=== PATIENT | female | born 1995 | race American Indian/Alaskan Native ===

== ENCOUNTER 2016-05-03 17:12 | Emergency (ER) | payer OTHER ==
[2016-05-03 21:49] VITALS: BP 128/76
[2016-05-03] MEDS ORDERED: MOTRIN PO ONE (22:19)
[2016-05-03] MEDS ORDERED: NORCO 5/325 PO ONE (22:19)
--- NOTE | 2016-05-03 23:36 | XRay Report ---
FINAL REPORT EXAM: XR ANKLE 3 LT HISTORY: Pain post injury TECHNIQUE: Left ankle three views 3 images PRIORS: None. FINDINGS: Bone mineralization appears within normal limits. No acute fracture or subluxation is identified. No gross abnormality is seen in the soft tissues. IMPRESSION: 1. No acute osseous abnormality is identified. If symptoms persist, consider repeat study in 10-14 days to assess for a currently radiographically occult fracture.
--- NOTE | 2016-05-03 23:59 | Emergency Department Report ---
HPI - General Chief Complaint: Extremity Injury, Lower Time Seen by Provider: 05/03/16 22:17 - HPI HPI: 20-year-old female presents today with left ankle pain since 4 PM today. Patient fell going down the steps at school. Positive for previous ankle sprains. Describes her pain as 8 out of 10 constant, throbbing pain. Denies numbness, weakness, paresthesias. Denies trying any medication for pain relief. Denies fever, chills, nausea, vomiting, chest pain, shortness of breath or abdominal pain. ED Past Medical Hx - Past Medical History Previous Medical History?: No - Surgical History Past Surgical History?: No - Social History Smoking Status: Never Smoker Substance Use Type: Alcohol, Marijuana - Medications Home Medications: Home Medications Medication Instructions Recorded Confirmed Last Taken Type Naproxen [Naprosyn] 500 mg PO BID #30 tablet 05/04/16 Unknown Rx ED Review of Systems ROS: Stated complaint: LFT ANKLE PAIN Other details as noted in HPI Constitutional: denies: chills, fever, malaise Eyes: denies: eye pain ENT: denies: ear pain, throat pain, congestion Respiratory: denies: cough, shortness of breath, wheezing Cardiovascular: denies: chest pain, palpitations Endocrine: no symptoms reported Gastrointestinal: denies: abdominal pain, nausea, vomiting Musculoskeletal: arthralgia Neurological: denies: headache, weakness, numbness, paresthesias Physical Exam - Physical Exam Vital Signs: Vital Signs 05/03/16 05/03/16 17:25 21:48 Temperature 98.2 F 98.0 F Pulse Rate 88 92 H Respiratory 18 16 Rate Blood Pressure 127/88 Blood Pressure 128/76 [Right] O2 Sat by Pulse 98 98 Oximetry Physical Exam: GENERAL: The patient is well-developed and well-nourished. Patient is in NAD. HEAD: Normocephalic. Atraumatic. CHEST/LUNGS: Clear to auscultation throughout. HEART/CARDIOVASCULAR: Regular rate and rhythm. ABDOMEN: Abdomen is soft, nontender. No guarding or rebound tenderness. LEFT ANKLE: Tenderness to palpation over lateral aspect of left ankle. Limited range of motion due to pain. Normal sensation. Peripheral pulses intact. Capillary refill less than 2 seconds. NEURO: Alert and oriented x 3. Antalgic gait. ED Course Vital Signs 05/03/16 05/03/16 17:25 21:48 Temperature 98.2 F 98.0 F Pulse Rate 88 92 H Respiratory 18 16 Rate Blood Pressure 127/88 Blood Pressure 128/76 [Right] O2 Sat by Pulse 98 98 Oximetry ED Medical Decision Making - Lab Data Vital Signs 05/03/16 05/03/16 17:25 21:48 Temperature 98.2 F 98.0 F Pulse Rate 88 92 H Respiratory 18 16 Rate Blood Pressure 127/88 Blood Pressure 128/76 [Right] O2 Sat by Pulse 98 98 Oximetry - Radiology Data Radiology results: report reviewed EXAM: XR ANKLE 3 LT HISTORY: Pain post injury TECHNIQUE: Left ankle three views 3 images PRIORS: None. FINDINGS: Bone mineralization appears within normal limits. No acute fracture or subluxation is identified. No gross abnormality is seen in the soft tissues. IMPRESSION: 1. No acute osseous abnormality is identified. If symptoms persist, consider repeat study in 10-14 days to assess for a currently radiographically occult fracture. - Medical Decision Making 20-year-old female presents today with left ankle pain post fall. Her x-ray results reveal no fracture or dislocation. She has been provided with a referral for orthopedic follow-up with. Patient is in no acute distress at this time. She will be discharged home and is encouraged to follow up with a primary care provider. She will be sent home on Naprosyn and is encouraged to return to the emergency room for any worsening symptoms. Critical care attestation.: If time is entered above; I have spent that time in minutes in the direct care of this critically ill patient, excluding procedure time. ED Disposition Clinical Impression: Ankle pain Qualifiers: Laterality: left Chronicity: acute Qualified Code(s): M25.572 - Pain in left ankle and joints of left foot Disposition: DISCHARGED TO HOME OR SELFCARE Is pt being admited?: No Does the pt Need Aspirin: No Condition: Stable Instructions: Ankle Sprain (ED), Ankle Exercises (GEN) Additional Instructions: Follow-up with primary care provider and orthopedic. Return to the emergency department if symptoms worsen. Prescriptions: Naproxen [Naprosyn] 500 mg PO BID #30 tablet Referrals: ALINA CISNEROS MD [Primary Care Provider] - 3-5 Days [facility] [Outside] - 3-5 Days NICOLE FLORENTINO MD [Staff Physician] - 3-5 Days Forms: Work/School Release Form(ED) Time of Disposition: 23:59
== END 2016-05-04 00:17 | disposition home or self-care (01) ==
LOC: ED 17:12
DX: M25.572 Pain in left ankle and joints of left foot (principal); F12.10 Cannabis abuse, uncomplicated
CPT/HCPCS: 99284